=== PATIENT | female | born 1940 | race African-American/Black ===

== ENCOUNTER 2022-10-20 17:18 | Inpatient (IN) | payer OTHER, MEDICAID ==
[~2022-10-20 17:18] MED LIST: Iopamidol 370 76% 100 ML VIAL ONE
[2022-10-20 18:09] LABS: #Monocytes 1.5 10x3/uL (0.0-1.1); #Neutrophils 11.3 10x3/uL (1.5-8.4); %Basophils 0.1 % (0.0-2.0); %Lymphocytes 15.1 % (18.0-47.0); %Monocytes 9.7 % (0.0-10.0); %Neutrophils 74.7 % (40.0-75.0); Hematocrit 33.6 % (34.9-44.5); Hemoglobin 11.3 g/dL (12.0-15.5); Mean Corpuscular HGB CONC 33.6 g/dL (32.0-36.0); Mean Corpuscular Hemoglobin 31.4 pg (27.0-33.0); Mean Corpuscular Volume 93.3 fl (81.6-98.3); Mean Platelet Volume 10.7 fl (7.4-10.4); Platelet Count 234 10x3/uL (150-450); RBC Distribution Width 12.6 % (11.5-14.5); White Blood Cell (WBC) Count 15.1 10x3/uL (3.5-10.5)
[2022-10-20 18:29] LABS: ALT (SGPT) 33 U/L (8-55); AST (SGOT) 32 U/L (5-34); Albumin 3.1 g/dL (3.4-4.8); Alkaline Phosphatase 97 U/L (40-110); Anion Gap 13 mmol/L (10-20); BUN (Urea Nitrogen) 16 mg/dL (9.8-20.1); Bilirubin, Total 0.4 mg/dL (0.2-1.2); Calc. Creatinine Clearance 0 mL/min (70-130); Calcium 9.3 mg/dL (7.8-10.44); Carbon Dioxide 25 mmol/L (23-31); Chloride 99 mmol/L (98-107); Estimated GFR 90; Globulin 3.2 g/dL (2.4-3.5); Glucose 120 mg/dL (83-110); Lipase 17 U/L (8-78); Potassium 4.4 mmol/L (3.5-5.1); Protein, Total 6.3 g/dL (5.8-8.1); Sodium 133 mmol/L (136-145)
[2022-10-20 18:33] LABS: Troponin I 0.038 ng/mL (< 0.028)
[2022-10-20] MEDS ORDERED: Communication Order-Pharmacy FS PRN (21:02)
[2022-10-20] MEDS ORDERED: cefTRIAXone (ROCEPHIN) 2 GM VIAL ONE (21:11)
[2022-10-20] MEDS ORDERED: Zinc Sulfate 220 MG CAP PO SCH (21:15)
[2022-10-20] MEDS ORDERED: Acetaminophen 650 MG Suppository PR PRN (21:23)
[2022-10-20] MEDS ORDERED: Ascorbic Acid 500 mg Chewable Tablet PER TUBE SCH (22:15)
[2022-10-20] MEDS ORDERED: Aspirin 81 mg Enteric Coated Tablet PER TUBE SCH (22:15)
[2022-10-20] MEDS ORDERED: Zinc Sulfate 220 MG CAP PER TUBE SCH (22:15)
[2022-10-20] MEDS ORDERED: Cholecalciferol 1,000 UNITS (25 MCG) TAB PER TUBE SCH (22:15)
[2022-10-20] MEDS: Sodium Chloride 0.9% 1,000 ML IV SCH (22:28)
[2022-10-20 22:36] LABS: Magnesium 2.1 mg/dL (1.6-2.6)
[2022-10-20] MEDS ORDERED: Vancomycin 1.5 GRAM/300 ML BAG 1.5 GM in Premix Bag 1 BAG IVPB SCH (23:00)
[2022-10-20] MEDS ORDERED: REMDESIVIR 200 MG in Sodium Chloride 0.9% 250 ML 210 ML IV SCH (23:59)
[2022-10-21 03:56] LABS: #Monocytes 0.6 10x3/uL (0.0-1.1); %Basophils 0.1 % (0.0-2.0); %Lymphocytes 10.6 % (18.0-47.0); %Monocytes 4.5 % (0.0-10.0); %Neutrophils 84.4 % (40.0-75.0); Hematocrit 33.1 % (34.9-44.5); Hemoglobin 10.9 g/dL (12.0-15.5); Mean Corpuscular HGB CONC 32.9 g/dL (32.0-36.0); Mean Corpuscular Hemoglobin 30.9 pg (27.0-33.0); Mean Corpuscular Volume 93.8 fl (81.6-98.3); Platelet Count 208 10x3/uL (150-450); RBC Distribution Width 12.8 % (11.5-14.5); Red Blood Cell (RBC) Count 3.53 10x6/uL (3.90-5.03); White Blood Cell (WBC) Count 14.3 10x3/uL (3.5-10.5)
[2022-10-21 04:04] LABS: Anion Gap 14 mmol/L (10-20); BUN (Urea Nitrogen) 15 mg/dL (9.8-20.1); CRP (Inflammatory) 17.39 mg/dL (= or < 0.5); Calc. Creatinine Clearance 112 mL/min (70-130); Calcium 8.6 mg/dL (7.8-10.44); Carbon Dioxide 20 mmol/L (23-31); Chloride 105 mmol/L (98-107); Estimated GFR 94; Glucose 127 mg/dL (83-110); Potassium 4.1 mmol/L (3.5-5.1); Sodium 135 mmol/L (136-145)
[2022-10-21] MEDS: Cefepime 2 GM in Sodium Chloride 0.9% 100 ML IVPB SCH ×3 (05:01→21:09)
[2022-10-21 05:50] LABS: Bilirubin Neg (Negative); Blood, Urine Negative (Negative); Clarity Clear (Clear); Glucose, Urine (Dipstick) Normal (Negative); Ketone, Urine Negative (Negative); Leukocyte 25 (Negative); Nitrite Negative (Negative); Protein, Urine (Dipstick) 30 mg/dl (Neg-Trace); Urobilinogen Normal mg/dL (Less than 2)
[2022-10-21 05:55] LABS: Bacteria/HPF Rare-Few HPF (None Seen); RBC/HPF 0-3 HPF (0-3); Squamous Epithelial None Seen HPF (0-3); WBC/HPF 0-3 HPF (0-3)
[2022-10-21 06:57] LABS: ALV-art Gradient 58.215 mmHg (0-20); Actual Bicarbonate (HCO3a) 24.4 mEq/L (22-28); Base Excess (BEa) -1.2 mEq/L (-2.0 to +3.0); CO2 Tension 44.1 mmHg (35.0-45.0); Calcium, Ionized (arterial) 1.29 mmol/L (1.12-1.30); Carboxyhemoglobin (COHb) 0.1 gm% (0.0-3.0); Critical Notified By: CP.PH; Hematocrit-ABG 36 % (36.0-47.0); Hemoglobin (Hb) 12.1 g/dL (12.0-16.0); O2 Tension (PaO2), arterial 86.3 mmHg (> 60.0); Potassium - ABG Lab 4.35 mmol/L (3.70-5.30); Puncture Site RRA; RapidComm Collect By CP.PH
[2022-10-21] MEDS: Dexamethasone 4 mg/ml Vial SLOW IVP SCH (07:56)
[2022-10-21] MEDS: Pantoprazole 40 MG VIAL IVP SCH (07:56)
[2022-10-21] MEDS: levETIRAcetam 500 mg/5 ml Oral Solution PO SCH ×2 (07:57→20:00)
[2022-10-21] MEDS: Vancomycin HCl 1 GM in Sodium Chloride 0.9% 250 ML 250 ML IVPB SCH ×2 (10:59→22:03)
[2022-10-21] MEDS: Sodium Chloride 0.9% 1,000 ML IV SCH (10:59)
[2022-10-21] MEDS: Zinc Sulfate 220 MG CAP PER TUBE SCH (20:00)
[2022-10-21] MEDS: Atorvastatin Calcium 20 MG TAB PO SCH (20:00)
[2022-10-21] MEDS: Aspirin 81 mg Enteric Coated Tablet PER TUBE SCH (20:00)
[2022-10-21] MEDS: Ascorbic Acid 500 mg Chewable Tablet PER TUBE SCH (20:00)
[2022-10-21] MEDS: Cholecalciferol 1,000 UNITS (25 MCG) TAB PER TUBE SCH (20:00)
[2022-10-21] MEDS: REMDESIVIR 100 MG in Sodium Chloride 0.9% 250 ML 230 ML IV SCH (23:30)
[2022-10-22] MEDS: Sodium Chloride 0.9% 1,000 ML IV SCH ×2 (00:43→14:55)
[2022-10-22] MEDS: Cefepime 2 GM in Sodium Chloride 0.9% 100 ML IVPB SCH ×3 (05:34→21:14)
[2022-10-22] MEDS: levETIRAcetam 500 mg/5 ml Oral Solution PO SCH ×2 (08:15→20:06)
[2022-10-22] MEDS: Dexamethasone 4 mg/ml Vial SLOW IVP SCH (08:15)
[2022-10-22] MEDS: Pantoprazole 40 MG VIAL IVP SCH (08:15)
[2022-10-22 10:34] LABS: Vancomycin, Trough 18.2 ug/mL
[2022-10-22] MEDS: Vancomycin HCl 1 GM in Sodium Chloride 0.9% 250 ML 250 ML IVPB SCH (10:44)
[2022-10-22] MEDS: hydrALAZINE 20 MG/ML VIAL SLOW IVP PRN ×2 (12:30→17:35)
[2022-10-22 13:03] LABS: #Monocytes 0.3 10x3/uL (0.0-1.1); #Neutrophils 10.6 10x3/uL (1.5-8.4); %Basophils 0.2 % (0.0-2.0); %Lymphocytes 8.8 % (18.0-47.0); %Monocytes 2.2 % (0.0-10.0); %Neutrophils 88.4 % (40.0-75.0); Hematocrit 37.7 % (34.9-44.5); Hemoglobin 12.3 g/dL (12.0-15.5); Mean Corpuscular HGB CONC 32.6 g/dL (32.0-36.0); Mean Corpuscular Hemoglobin 30.7 pg (27.0-33.0); Mean Platelet Volume 10.9 fl (7.4-10.4); Platelet Count 273 10x3/uL (150-450); RBC Distribution Width 12.3 % (11.5-14.5); Red Blood Cell (RBC) Count 4.01 10x6/uL (3.90-5.03)
[2022-10-22 13:55] LABS: ALT (SGPT) 26 U/L (8-55); AST (SGOT) 37 U/L (5-34); Albumin 3.1 g/dL (3.4-4.8); Alkaline Phosphatase 87 U/L (40-110); Anion Gap 15 mmol/L (10-20); BUN (Urea Nitrogen) 18 mg/dL (9.8-20.1); Bilirubin, Total 0.2 mg/dL (0.2-1.2); Calc. Creatinine Clearance 104 mL/min (70-130); Calcium 10.5 mg/dL (7.8-10.44); Carbon Dioxide 20 mmol/L (23-31); Chloride 107 mmol/L (98-107); Estimated GFR 92; Globulin 3.8 g/dL (2.4-3.5); Glucose 97 mg/dL (83-110); Magnesium 1.9 mg/dL (1.6-2.6); Potassium 4.5 mmol/L (3.5-5.1); Protein, Total 6.9 g/dL (5.8-8.1); Sodium 137 mmol/L (136-145)
[2022-10-22] MEDS ORDERED: Scopolamine 1.5 mg/72 hour Patch TD SCH (15:00)
[2022-10-22] MEDS: Scopolamine 1.5 mg/72 hour Patch TD SCH (15:03)
[2022-10-22] MEDS ORDERED: Lisinopril 5 MG TAB PO SCH (16:00)
[2022-10-22 16:01] LABS: ALT (SGPT) 28 U/L (8-55); Alkaline Phosphatase 86 U/L (40-110); Anion Gap 15 mmol/L (10-20); BUN (Urea Nitrogen) 16 mg/dL (9.8-20.1); Bilirubin, Total 0.2 mg/dL (0.2-1.2); Calc. Creatinine Clearance 108 mL/min (70-130); Calcium 10.3 mg/dL (7.8-10.44); Carbon Dioxide 16 mmol/L (23-31); Chloride 108 mmol/L (98-107); Estimated GFR 93; Globulin 4.1 g/dL (2.4-3.5); Glucose 92 mg/dL (83-110); Potassium 4.2 mmol/L (3.5-5.1); Protein, Total 7.1 g/dL (5.8-8.1); Sodium 135 mmol/L (136-145)
[2022-10-22 16:02] LABS: AST (SGOT) 41 U/L (5-34)
[2022-10-22] MEDS ORDERED: Labetalol HCl 100 MG/20 ML VIAL SLOW IVP SCH (20:00)
[2022-10-22] MEDS: Cholecalciferol 1,000 UNITS (25 MCG) TAB PER TUBE SCH (20:05)
[2022-10-22] MEDS: Zinc Sulfate 220 MG CAP PER TUBE SCH (20:05)
[2022-10-22] MEDS: Ascorbic Acid 500 mg Chewable Tablet PER TUBE SCH (20:05)
[2022-10-22] MEDS: Atorvastatin Calcium 20 MG TAB PO SCH (20:06)
[2022-10-22] MEDS: Valproate Sodium 250 mg/5 ml UD Cup PO SCH (20:06)
[2022-10-22] MEDS: Aspirin 81 mg Enteric Coated Tablet PER TUBE SCH (20:06)
[2022-10-22] MEDS: REMDESIVIR 100 MG in Sodium Chloride 0.9% 250 ML 230 ML IV SCH (23:28)
[2022-10-23] MEDS: Vancomycin HCl 1 GM in Sodium Chloride 0.9% 250 ML 250 ML IVPB SCH ×3 (04:14→22:54)
[2022-10-23] MEDS: Sodium Chloride 0.9% 1,000 ML IV SCH (04:14)
[2022-10-23 04:15] LABS: #Monocytes 0.7 10x3/uL (0.0-1.1); #Neutrophils 6.1 10x3/uL (1.5-8.4); %Basophils 0.2 % (0.0-2.0); %Lymphocytes 20.1 % (18.0-47.0); %Monocytes 7.9 % (0.0-10.0); %Neutrophils 71.5 % (40.0-75.0); Hematocrit 35.2 % (34.9-44.5); Hemoglobin 11.7 g/dL (12.0-15.5); Mean Corpuscular HGB CONC 33.2 g/dL (32.0-36.0); Mean Corpuscular Hemoglobin 30.8 pg (27.0-33.0); Mean Corpuscular Volume 92.6 fl (81.6-98.3); Mean Platelet Volume 10.8 fl (7.4-10.4); Platelet Count 259 10x3/uL (150-450); RBC Distribution Width 12.5 % (11.5-14.5); White Blood Cell (WBC) Count 8.6 10x3/uL (3.5-10.5)
[2022-10-23 04:17] LABS: Actual Bicarbonate (HCO3v) 21.8 mEq/L (22-28); Base Excess -2.3 mEq/L (-2 - +2); Calcium, Ionized (venous) 1.31 mmol/L (1.16-1.32); Chloride (VBG) 107 mmol/L (98-106); Critical Notified By: CP.PH; Hematocrit-VBG 36 % (36.0-47.0); Hemoglobin (Hb) 12.4 g/dL (11.7-16.1); Potassium (VBG) 3.42 mmol/L (3.70-5.30); Puncture Site Other Site; RapidComm Collect By LAB.YY; Sodium 136.9 mmol/L (133-146); pH (venous) 7.408 (7.32-7.43)
[2022-10-23 04:28] LABS: ALT (SGPT) 24 U/L (8-55); AST (SGOT) 30 U/L (5-34); Albumin 2.7 g/dL (3.4-4.8); Alkaline Phosphatase 78 U/L (40-110); Anion Gap 15 mmol/L (10-20); BUN (Urea Nitrogen) 14 mg/dL (9.8-20.1); Bilirubin, Direct 0.1 mg/dL (0.1-0.3); Bilirubin, Total 0.2 mg/dL (0.2-1.2); Calc. Creatinine Clearance 103 mL/min (70-130); Calcium 10.1 mg/dL (7.8-10.44); Carbon Dioxide 19 mmol/L (23-31); Chloride 109 mmol/L (98-107); Estimated GFR 92; Glucose 85 mg/dL (83-110); Magnesium 1.8 mg/dL (1.6-2.6); Potassium 3.6 mmol/L (3.5-5.1); Protein, Total 6.2 g/dL (5.8-8.1); Sodium 139 mmol/L (136-145)
[2022-10-23] MEDS: Cefepime 2 GM in Sodium Chloride 0.9% 100 ML IVPB SCH ×3 (05:49→21:08)
[2022-10-23] MEDS: Levothyroxine Sodium 100 MCG TAB PO SCH (05:53)
[2022-10-23] MEDS: Lisinopril 10 MG TAB PER TUBE SCH (08:01)
[2022-10-23] MEDS: Valproate Sodium 250 mg/5 ml UD Cup PO SCH ×2 (08:01→20:01)
[2022-10-23] MEDS: levETIRAcetam 500 mg/5 ml Oral Solution PO SCH ×2 (08:01→20:01)
[2022-10-23] MEDS: Dexamethasone 4 mg/ml Vial SLOW IVP SCH (08:02)
[2022-10-23] MEDS: Pantoprazole 40 MG VIAL IVP SCH (08:02)
[2022-10-23] MEDS ORDERED: Hydrochlorothiazide 25 MG TAB PO SCH (09:00)
[2022-10-23] MEDS: Guaifenesin DM 100-10/5 ML UDCUP PER TUBE PRN ×2 (13:50→20:00)
[2022-10-23] MEDS: Cholecalciferol 1,000 UNITS (25 MCG) TAB PER TUBE SCH (20:01)
[2022-10-23] MEDS: Atorvastatin Calcium 20 MG TAB PO SCH (20:01)
[2022-10-23] MEDS: Zinc Sulfate 220 MG CAP PER TUBE SCH (20:01)
[2022-10-23] MEDS: Aspirin 81 mg Enteric Coated Tablet PER TUBE SCH (20:02)
[2022-10-23] MEDS: Ascorbic Acid 500 mg Chewable Tablet PER TUBE SCH (20:02)
[2022-10-23 22:17] LABS: Vancomycin, Trough 15.9 ug/mL
[2022-10-23] MEDS: REMDESIVIR 100 MG in Sodium Chloride 0.9% 250 ML 230 ML IV SCH (23:59)
[2022-10-24] MEDS: Levothyroxine Sodium 100 MCG TAB PO SCH (05:02)
[2022-10-24 05:24] LABS: #Eosinphils 0.1 10x3/uL (0.0-0.5); #Monocytes 0.7 10x3/uL (0.0-1.1); #Neutrophils 5.7 10x3/uL (1.5-8.4); %Basophils 0.2 % (0.0-2.0); %Eosinophils 0.6 % (0.0-6.0); %Lymphocytes 25.8 % (18.0-47.0); %Monocytes 8.4 % (0.0-10.0); %Neutrophils 64.7 % (40.0-75.0); Hematocrit 34.2 % (34.9-44.5); Hemoglobin 11.6 g/dL (12.0-15.5); Mean Corpuscular HGB CONC 33.9 g/dL (32.0-36.0); Mean Corpuscular Hemoglobin 31.2 pg (27.0-33.0); Mean Corpuscular Volume 91.9 fl (81.6-98.3); Mean Platelet Volume 10.9 fl (7.4-10.4); Platelet Count 264 10x3/uL (150-450); RBC Distribution Width 12.8 % (11.5-14.5); Red Blood Cell (RBC) Count 3.72 10x6/uL (3.90-5.03); White Blood Cell (WBC) Count 8.8 10x3/uL (3.5-10.5)
[2022-10-24] MEDS: Cefepime 2 GM in Sodium Chloride 0.9% 100 ML IVPB SCH ×3 (05:25→22:59)
[2022-10-24 05:37] LABS: Anion Gap 14 mmol/L (10-20); BUN (Urea Nitrogen) 16 mg/dL (9.8-20.1); Calc. Creatinine Clearance 108 mL/min (70-130); Calcium 9.6 mg/dL (7.8-10.44); Carbon Dioxide 18 mmol/L (23-31); Chloride 112 mmol/L (98-107); Estimated GFR 93; Glucose 95 mg/dL (83-110); Magnesium 1.9 mg/dL (1.6-2.6); Potassium 3.6 mmol/L (3.5-5.1); Sodium 140 mmol/L (136-145)
[2022-10-24] MEDS: Valproate Sodium 250 mg/5 ml UD Cup PO SCH ×2 (08:58→20:15)
[2022-10-24] MEDS: Lisinopril 10 MG TAB PER TUBE SCH (08:58)
[2022-10-24] MEDS: Dexamethasone 4 mg/ml Vial SLOW IVP SCH (08:59)
[2022-10-24] MEDS: Pantoprazole 40 MG VIAL IVP SCH (08:59)
[2022-10-24] MEDS: levETIRAcetam 500 mg/5 ml Oral Solution PO SCH ×2 (09:18→20:16)
[2022-10-24] MEDS ORDERED: Amlodipine 5 MG TAB PER TUBE SCH (12:00)
[2022-10-24] MEDS: Vancomycin HCl 1 GM in Sodium Chloride 0.9% 250 ML 250 ML IVPB SCH (18:00)
[2022-10-24] MEDS: Ascorbic Acid 500 mg Chewable Tablet PER TUBE SCH (20:18)
[2022-10-24] MEDS: Aspirin 81 mg Enteric Coated Tablet PER TUBE SCH (20:18)
[2022-10-24] MEDS: Atorvastatin Calcium 20 MG TAB PO SCH (20:18)
[2022-10-24] MEDS: Cholecalciferol 1,000 UNITS (25 MCG) TAB PER TUBE SCH (20:19)
[2022-10-24] MEDS: Zinc Sulfate 220 MG CAP PER TUBE SCH (21:28)
[2022-10-25] MEDS: REMDESIVIR 100 MG in Sodium Chloride 0.9% 250 ML 230 ML IV SCH (00:35)
[2022-10-25] MEDS: Cefepime 2 GM in Sodium Chloride 0.9% 100 ML IVPB SCH ×3 (05:30→21:05)
[2022-10-25] MEDS: Levothyroxine Sodium 100 MCG TAB PO SCH (05:45)
[2022-10-25 07:46] LABS: #Eosinphils 0.2 10x3/uL (0.0-0.5); #Monocytes 0.7 10x3/uL (0.0-1.1); #Neutrophils 7.5 10x3/uL (1.5-8.4); %Basophils 0.3 % (0.0-2.0); %Eosinophils 1.5 % (0.0-6.0); %Lymphocytes 22.5 % (18.0-47.0); %Monocytes 6.7 % (0.0-10.0); %Neutrophils 68.3 % (40.0-75.0); Hematocrit 34.7 % (34.9-44.5); Hemoglobin 11.4 g/dL (12.0-15.5); Mean Corpuscular HGB CONC 32.9 g/dL (32.0-36.0); Mean Corpuscular Hemoglobin 30.6 pg (27.0-33.0); Mean Corpuscular Volume 93.3 fl (81.6-98.3); Mean Platelet Volume 10.6 fl (7.4-10.4); Platelet Count 259 10x3/uL (150-450); RBC Distribution Width 12.8 % (11.5-14.5); Red Blood Cell (RBC) Count 3.72 10x6/uL (3.90-5.03)
[2022-10-25 07:55] LABS: Anion Gap 12 mmol/L (10-20); BUN (Urea Nitrogen) 13 mg/dL (9.8-20.1); Calc. Creatinine Clearance 111 mL/min (70-130); Calcium 9.3 mg/dL (7.8-10.44); Carbon Dioxide 22 mmol/L (23-31); Chloride 109 mmol/L (98-107); Estimated GFR 93; Glucose 113 mg/dL (83-110); Magnesium 1.9 mg/dL (1.6-2.6); Potassium 3.5 mmol/L (3.5-5.1); Sodium 139 mmol/L (136-145)
[2022-10-25] MEDS: Valproate Sodium 250 mg/5 ml UD Cup PO SCH ×2 (09:10→21:06)
[2022-10-25] MEDS: Lisinopril 10 MG TAB PER TUBE SCH (09:10)
[2022-10-25] MEDS: levETIRAcetam 500 mg/5 ml Oral Solution PO SCH ×2 (09:10→21:04)
[2022-10-25] MEDS: Pantoprazole 40 MG VIAL IVP SCH (09:11)
[2022-10-25] MEDS: Dexamethasone 4 mg/ml Vial SLOW IVP SCH (09:11)
[2022-10-25] MEDS: Amlodipine 5 MG TAB PER TUBE SCH (09:11)
[2022-10-25 10:21] VITALS: BMI 29.4
[2022-10-25] MEDS: Vancomycin HCl 1 GM in Sodium Chloride 0.9% 250 ML 250 ML IVPB SCH ×2 (11:00→12:00)
[2022-10-25 11:35] LABS: Vancomycin, Trough 14.3 ug/mL
[2022-10-25] MEDS: Scopolamine 1.5 mg/72 hour Patch TD SCH (15:52)
[2022-10-25] MEDS: Ascorbic Acid 500 mg Chewable Tablet PER TUBE SCH (21:06)
[2022-10-25] MEDS: Aspirin 81 mg Enteric Coated Tablet PER TUBE SCH (21:06)
[2022-10-25] MEDS: Zinc Sulfate 220 MG CAP PER TUBE SCH (21:06)
[2022-10-25] MEDS: Cholecalciferol 1,000 UNITS (25 MCG) TAB PER TUBE SCH (21:06)
[2022-10-25] MEDS: Atorvastatin Calcium 20 MG TAB PO SCH (21:06)
[2022-10-25] MEDS: hydrALAZINE 20 MG/ML VIAL SLOW IVP PRN (22:09)
[2022-10-26] MEDS ORDERED: Acetaminophen 325 MG TAB PER TUBE PRN (02:52)
[2022-10-26] MEDS ORDERED: Sodium Chloride 0.9% 250 ML 250 ML ONE (05:37)
[2022-10-26] MEDS: Cefepime 2 GM in Sodium Chloride 0.9% 100 ML IVPB SCH (05:49)
[2022-10-26] MEDS: Levothyroxine Sodium 100 MCG TAB PO SCH (05:50)
[2022-10-26] MEDS: Vancomycin HCl 1 GM in Sodium Chloride 0.9% 250 ML 250 ML IVPB SCH (06:45)
[2022-10-26 07:29] LABS: #Eosinphils 0.2 10x3/uL (0.0-0.5); #Monocytes 0.9 10x3/uL (0.0-1.1); #Neutrophils 9.5 10x3/uL (1.5-8.4); %Basophils 0.3 % (0.0-2.0); %Eosinophils 1.6 % (0.0-6.0); %Monocytes 6.7 % (0.0-10.0); %Neutrophils 71.9 % (40.0-75.0); Hematocrit 37.3 % (34.9-44.5); Hemoglobin 12.4 g/dL (12.0-15.5); Mean Corpuscular HGB CONC 33.2 g/dL (32.0-36.0); Mean Corpuscular Hemoglobin 30.8 pg (27.0-33.0); Mean Corpuscular Volume 92.6 fl (81.6-98.3); Mean Platelet Volume 10.6 fl (7.4-10.4); Platelet Count 314 10x3/uL (150-450); RBC Distribution Width 13.1 % (11.5-14.5); Red Blood Cell (RBC) Count 4.03 10x6/uL (3.90-5.03); White Blood Cell (WBC) Count 13.2 10x3/uL (3.5-10.5)
[2022-10-26 08:01] LABS: Anion Gap 12 mmol/L (10-20); BUN (Urea Nitrogen) 11 mg/dL (9.8-20.1); Calc. Creatinine Clearance 107 mL/min (70-130); Calcium 9.8 mg/dL (7.8-10.44); Carbon Dioxide 24 mmol/L (23-31); Chloride 106 mmol/L (98-107); Estimated GFR 93; Glucose 118 mg/dL (83-110); Magnesium 2.1 mg/dL (1.6-2.6); Potassium 3.6 mmol/L (3.5-5.1); Sodium 138 mmol/L (136-145)
[2022-10-26] MEDS: Amlodipine 5 MG TAB PER TUBE SCH (09:05)
[2022-10-26] MEDS: Pantoprazole 40 MG VIAL IVP SCH (09:05)
[2022-10-26] MEDS: Lisinopril 10 MG TAB PER TUBE SCH (09:05)
[2022-10-26] MEDS: levETIRAcetam 500 mg/5 ml Oral Solution PO SCH (09:05)
[2022-10-26] MEDS: Valproate Sodium 250 mg/5 ml UD Cup PO SCH (09:06)
[2022-10-26 09:42] VITALS: BP 169/98; TEMP 99.4
== END 2022-10-26 12:46 | DRG 871 ==
LOC: CSHERS 17:18 → CSHICU 22:07 → CSHTELE 10-24 04:04
PROVIDERS: ADMIT Family Medicine; ATTEND Family Medicine
PROC: 3E03329 Introduction of Other Anti-infective into Peripheral Vein, Percutaneous Approach (ICD-10-PCS; 2022-10-20)
PROC: XW033E5 Introduction of Remdesivir Anti-infective into Peripheral Vein, Percutaneous Approach, New Technology Group 5 (ICD-10-PCS; principal; 2022-10-21)
PROC: 4A033R1 Measurement of Arterial Saturation, Peripheral, Percutaneous Approach (ICD-10-PCS; 2022-10-21)
PROC: 3E0333Z Introduction of Anti-inflammatory into Peripheral Vein, Percutaneous Approach (ICD-10-PCS; 2022-10-21)
DX: A41.89 Other specified sepsis (principal); J12.82 Pneumonia due to coronavirus disease 2019; U07.1 COVID-19; J96.21 Acute and chronic respiratory failure with hypoxia; N18.6 End stage renal disease; I69.354 Hemiplegia and hemiparesis following cerebral infarction affecting left non-dominant side; J44.9 Chronic obstructive pulmonary disease, unspecified; E03.9 Hypothyroidism, unspecified; E78.5 Hyperlipidemia, unspecified; F03.90 Unspecified dementia, unspecified severity, without behavioral disturbance, psychotic disturbance, mood disturbance, and anxiety; G40.909 Epilepsy, unspecified, not intractable, without status epilepticus; K21.9 Gastro-esophageal reflux disease without esophagitis; E83.52 Hypercalcemia; I25.10 Atherosclerotic heart disease of native coronary artery without angina pectoris; Z79.82 Long term (current) use of aspirin; Z79.899 Other long term (current) drug therapy; Z93.1 Gastrostomy status
CPT/HCPCS: 36415; 36416; 36600; 71045; 71275; 80048; 80053; 80076; 80202; 81001; 82805; 83605; 83690; 83735; 83880; 84145; 84146; 84443; 84484; 85025; 86140; 87040; 87081; 87086; 87149; 93005; 93010; 94760; 94762; 96374; C9113; J0248; J0360; J0692; J0696; J1100; J1650; J3370; J3490; J7050; Q9967

== ENCOUNTER 2023-01-03 13:56 | Emergency (ER) | payer OTHER, MEDICAID ==
[2023-01-03 14:46] LABS: ALT (SGPT) 28 U/L (8-55); AST (SGOT) 33 U/L (5-34); Albumin 3.7 g/dL (3.4-4.8); Alkaline Phosphatase 114 U/L (40-110); Anion Gap 14 mmol/L (10-20); BUN (Urea Nitrogen) 11 mg/dL (9.8-20.1); Bilirubin, Total 0.4 mg/dL (0.2-1.2); Calc. Creatinine Clearance 0 mL/min (70-130); Calcium 10.9 mg/dL (7.8-10.44); Carbon Dioxide 21 mmol/L (23-31); Chloride 100 mmol/L (98-107); Estimated GFR 91; Globulin 3.6 g/dL (2.4-3.5); Glucose 97 mg/dL (83-110); Magnesium 2.1 mg/dL (1.6-2.6); Potassium 5.3 mmol/L (3.5-5.1); Protein, Total 7.3 g/dL (5.8-8.1); Sodium 130 mmol/L (136-145)
[2023-01-03 14:49] LABS: #Eosinphils 0.2 10x3/uL (0.0-0.5); #Monocytes 0.5 10x3/uL (0.0-1.1); #Neutrophils 6.1 10x3/uL (1.5-8.4); %Basophils 0.3 % (0.0-2.0); %Eosinophils 2.5 % (0.0-6.0); %Lymphocytes 22.7 % (18.0-47.0); %Monocytes 5.6 % (0.0-10.0); %Neutrophils 68.4 % (40.0-75.0); Hematocrit 38.8 % (34.9-44.5); Hemoglobin 13.1 g/dL (12.0-15.5); Mean Corpuscular HGB CONC 33.8 g/dL (32.0-36.0); Mean Corpuscular Hemoglobin 31.1 pg (27.0-33.0); Mean Corpuscular Volume 92.2 fl (81.6-98.3); Platelet Count 269 10x3/uL (150-450); RBC Distribution Width 13.3 % (11.5-14.5); Red Blood Cell (RBC) Count 4.21 10x6/uL (3.90-5.03); White Blood Cell (WBC) Count 8.9 10x3/uL (3.5-10.5)
[2023-01-03 14:50] LABS: Troponin I Less than 0.010 ng/mL (< 0.028)
[2023-01-03 15:06] LABS: Platelet Adequacy Comment Appears Adequate; RBC Morph Comment Within Normal Limits
[2023-01-03 15:07] LABS: Platelet Clumps SLIGHT
[2023-01-03] MEDS ORDERED: NOREPINEPHRINE 8 MG/250 ML-D5W 250 ML ONE (15:07)
[2023-01-03 15:52] LABS: Bilirubin Neg (Negative); Blood, Urine 50 (Negative); Glucose, Urine (Dipstick) Normal (Negative); Ketone, Urine Negative (Negative); Leukocyte Negative (Negative); Nitrite Negative (Negative); Protein, Urine (Dipstick) Negative (Neg-Trace); Urobilinogen Normal mg/dL (Less than 2)
[2023-01-03 16:08] LABS: Clarity Hazy (Clear)
[2023-01-03 16:10] LABS: Bacteria/HPF None Seen HPF (None Seen); CAUTI Indications for Culture Pelvic or flank pain; Squamous Epithelial 0-3 HPF (0-3); WBC/HPF 0-3 HPF (0-3)
[2023-01-03 16:11] LABS: Urine Culture Reflex No No
== END 2023-01-03 18:33 | disposition home or self-care (01) ==
LOC: CSHERS 13:56
DX: R25.1 Tremor, unspecified (principal); G40.909 Epilepsy, unspecified, not intractable, without status epilepticus; I12.0 Hypertensive chronic kidney disease with stage 5 chronic kidney disease or end stage renal disease; N18.6 End stage renal disease; I25.10 Atherosclerotic heart disease of native coronary artery without angina pectoris; E03.9 Hypothyroidism, unspecified; E66.9 Obesity, unspecified; J44.9 Chronic obstructive pulmonary disease, unspecified; Z99.2 Dependence on renal dialysis
CPT/HCPCS: 36416; 71045; 80053; 81001; 83605; 83735; 84484; 85025; 93005; 96374

== ENCOUNTER 2023-01-03 22:48 | Emergency (ER) | payer OTHER, MEDICAID ==
[2023-01-03] MEDS ORDERED: Lorazepam 2 MG/ML VIAL ONE (23:16)
[2023-01-03] MEDS ORDERED: levETIRAcetam 500 MG/5 ML VIAL ONE (23:20)
[2023-01-04 00:14] LABS: ALT (SGPT) 31 U/L (8-55); AST (SGOT) 43 U/L (5-34); Acetaminophen Less than 10 mcg/mL (10.0-30.0); Albumin 3.6 g/dL (3.4-4.8); Alcohol Less than 10.0 mg/dL (Less than 10); Alkaline Phosphatase 108 U/L (40-110); Anion Gap 14 mmol/L (10-20); BUN (Urea Nitrogen) 11 mg/dL (9.8-20.1); Bilirubin, Total 0.3 mg/dL (0.2-1.2); Calc. Creatinine Clearance 0 mL/min (70-130); Calcium 10.7 mg/dL (7.8-10.44); Carbon Dioxide 21 mmol/L (23-31); Chloride 102 mmol/L (98-107); Estimated GFR 91; Globulin 3.5 g/dL (2.4-3.5); Glucose 94 mg/dL (83-110); Potassium 5.5 mmol/L (3.5-5.1); Protein, Total 7.1 g/dL (5.8-8.1); Salicylate Less than 8.0 mg/dL (15.0-30.0); Sodium 131 mmol/L (136-145)
[2023-01-04 00:22] LABS: Troponin I 0.011 ng/mL (< 0.028)
[2023-01-04 00:25] LABS: #Basophils 0.1 10x3/uL (0.0-0.2); #Eosinphils 0.3 10x3/uL (0.0-0.5); #Monocytes 0.7 10x3/uL (0.0-1.1); #Neutrophils 7.6 10x3/uL (1.5-8.4); %Basophils 0.4 % (0.0-2.0); %Eosinophils 2.5 % (0.0-6.0); %Monocytes 6.3 % (0.0-10.0); %Neutrophils 65.4 % (40.0-75.0); Hematocrit 37.7 % (34.9-44.5); Hemoglobin 12.7 g/dL (12.0-15.5); Mean Corpuscular HGB CONC 33.7 g/dL (32.0-36.0); Mean Corpuscular Hemoglobin 31.9 pg (27.0-33.0); Mean Corpuscular Volume 94.7 fl (81.6-98.3); Mean Platelet Volume 10.9 fl (7.4-10.4); Platelet Count 352 10x3/uL (150-450); RBC Distribution Width 13.2 % (11.5-14.5); Red Blood Cell (RBC) Count 3.98 10x6/uL (3.90-5.03); White Blood Cell (WBC) Count 11.6 10x3/uL (3.5-10.5)
[2023-01-04 06:12] LABS: Dilantin 4.9 ug/mL (10.0-20.0)
== END 2023-01-04 03:28 | disposition short-term general hospital (02) ==
LOC: CSHERS 22:48
DX: G40.909 Epilepsy, unspecified, not intractable, without status epilepticus (principal); I12.0 Hypertensive chronic kidney disease with stage 5 chronic kidney disease or end stage renal disease; N18.6 End stage renal disease; J44.9 Chronic obstructive pulmonary disease, unspecified; E66.9 Obesity, unspecified; E03.9 Hypothyroidism, unspecified; I25.10 Atherosclerotic heart disease of native coronary artery without angina pectoris; K21.9 Gastro-esophageal reflux disease without esophagitis; Z99.2 Dependence on renal dialysis
CPT/HCPCS: 70450; 80053; 80164; 80185; 80307; 83605; 84484; 85025; 93005; J1953; 36415; 96374; 96375; J2060